=== PATIENT | male | born 1980 | race Caucasian/White ===

== ENCOUNTER 2021-03-09 09:08 | Inpatient (IN) | payer OTHER, SELFPAY ==
[2021-03-09] MEDS ORDERED: Morphine 4 MG/ML VIAL ONE ×2 (09:49→13:46)
[2021-03-09] MEDS ORDERED: Ondansetron PF 4 MG/2 ML Vial ONE ×3 (09:49→15:21)
[2021-03-09 10:13] LABS: Hemoglobin 14.8 g/dL (13.5-17.5); Mean Corpuscular HGB CONC 33.3 g/dL (32.0-36.0); Mean Corpuscular Hemoglobin 29.8 pg (27.0-33.0); Mean Corpuscular Volume 89.5 fl (81.2-95.1); Mean Platelet Volume 9.9 fl (7.4-10.4); Platelet Count 479 10x3/uL (150-450); Red Blood Cell (RBC) Count 4.96 10x6/uL (4.32-5.72); White Blood Cell (WBC) Count 20.7 10x3/uL (3.5-10.5)
[2021-03-09 10:24] LABS: ALT (SGPT) 13 U/L (8-55); AST (SGOT) 13 U/L (5-34); Albumin 4.5 g/dL (3.5-5.0); Alkaline Phosphatase 99 U/L (40-110); Anion Gap 16 mmol/L (10-20); BUN (Urea Nitrogen) 13 mg/dL (8.9-20.6); Bilirubin, Total 0.6 mg/dL (0.2-1.2); Calc. Creatinine Clearance 0 mL/min (70-130); Calcium 9.9 mg/dL (7.8-10.44); Carbon Dioxide 27 mmol/L (22-29); Chloride 97 mmol/L (98-107); Globulin 3.4 g/dL (2.4-3.5); Glucose 156 mg/dL (70-105); Lipase 16 U/L (8-78); Potassium 3.6 mmol/L (3.5-5.1); Protein, Total 7.9 g/dL (6.0-8.3); Sodium 136 mmol/L (136-145)
[2021-03-09 10:54] LABS: MDiff Complete? YES
[2021-03-09] MEDS ORDERED: Ketorolac Tromethamine 30 MG/ML VIAL ONE ×2 (10:57→16:04)
[2021-03-09 10:58] LABS: Band 2 % (5-11); Eosinophils 3 % (0-10); Lymphocytes 13 % (21-51); Monocytes 3 % (0-10); Neutrophil 79 % (42-75)
[2021-03-09 10:59] LABS: Large Platelets SLIGHT; Platelet Morphology Comment Appears Increased
[2021-03-09 11:12] LABS: Acetaminophen Less than 6.0 mcg/mL (10.0-30.0); Alcohol Less than 10 mg/dL (Less than 10); Salicylate Less than 8.0 mg/dL (15.0-30.0)
[2021-03-09 12:57] LABS: Lactic Acid 1.3 mmol/L (0.5-2.2)
[2021-03-09] MEDS ORDERED: Pantoprazole 40 MG VIAL ONE ×3 (13:47→13:49)
[2021-03-09 14:35] LABS: SARS-CoV-2 NAA Rapid Test Not Detected (NotDetected)
[2021-03-09] MEDS ORDERED: Dextrose 50% Abboject 50 ML SYRINGE SLOW IVP PRN (14:38)
[2021-03-09] MEDS ORDERED: Morphine 2 MG/ML VIAL SLOW IVP PRN (14:38)
[2021-03-09] MEDS ORDERED: Promethazine HCl 25 MG/ML VIAL IM PRN (14:38)
[2021-03-09] MEDS ORDERED: hydrALAZINE 20 MG/ML VIAL SLOW IVP PRN (14:38)
[2021-03-09] MEDS ORDERED: Dextrose 5% in Water 1,000 ML IV PRN (14:38)
[2021-03-09] MEDS ORDERED: PROPOFOL 40 ML ONE (15:20)
[2021-03-09] MEDS ORDERED: Fentanyl 250 MCG/5 ML VIAL ONE (15:21)
[2021-03-09] MEDS ORDERED: Lidocaine 1% PF 5 ML VIAL ONE (15:21)
[2021-03-09] MEDS ORDERED: Rocuronium Bromide 10 MG/ML (10ML VIAL) ONE (15:21)
[2021-03-09] MEDS ORDERED: Dexamethasone 4 mg/ml Vial ONE ×2 (15:21→15:39)
[2021-03-09] MEDS ORDERED: Succinylcholine 200 MG/10 ml SYRINGE FS ONE (15:22)
[2021-03-09] MEDS ORDERED: HYDROmorphone 0.5 MG/0.5 ML SYRINGE ONE (15:37)
[2021-03-09] MEDS ORDERED: ceFOXitin 1 GM VIAL ONE (15:39)
[2021-03-09] MEDS ORDERED: Midazolam HCl 2 mg/2 ml Vial ONE (15:40)
[2021-03-09] MEDS ORDERED: PHENYLEPHRINE-NS 100 MCG/ML 10 ML SYRINGE ONE ×2 (15:50→16:45)
[2021-03-09] MEDS ORDERED: ePHEDrine Sulfate 50 MG/10 ML VIAL ONE (15:54)
[2021-03-09] MEDS ORDERED: Glycopyrrolate 0.2 MG/ML 5 ML SYRINGE ONE (16:19)
[2021-03-09 20:27] VITALS: BMI 24.3
[2021-03-09] MEDS: D5 1/2 NS w/20 mEq KCL 1,000 ML IV SCH (20:28)
[2021-03-09] MEDS: Morphine 4 MG/ML VIAL SLOW IVP PRN (20:29)
[2021-03-09] MEDS: Famotidine/PF 20 mg/2ml Vial SLOW IVP SCH (20:30)
[2021-03-09] MEDS: Ketorolac Tromethamine 30 MG/ML VIAL IVP SCH (21:52)
[2021-03-09] MEDS ORDERED: FLU VACC QS2021-22(6MOS UP)/PF 60 MCG/0.5 ML SYRINGE IM ONE (22:15)
[2021-03-10] MEDS: Morphine 4 MG/ML VIAL SLOW IVP PRN ×7 (02:47→23:16)
[2021-03-10] MEDS: D5 1/2 NS w/20 mEq KCL 1,000 ML IV SCH ×4 (02:48→22:26)
[2021-03-10] MEDS: Ketorolac Tromethamine 30 MG/ML VIAL IVP SCH ×4 (04:20→21:17)
[2021-03-10 05:07] LABS: ALT (SGPT) 11 U/L (8-55); AST (SGOT) 13 U/L (5-34); Albumin 3.4 g/dL (3.5-5.0); Alkaline Phosphatase 65 U/L (40-110); Anion Gap 14 mmol/L (10-20); BUN (Urea Nitrogen) 14 mg/dL (8.9-20.6); Bilirubin, Total 0.7 mg/dL (0.2-1.2); Calc. Creatinine Clearance 138 mL/min (70-130); Calcium 8.4 mg/dL (7.8-10.44); Carbon Dioxide 25 mmol/L (22-29); Chloride 102 mmol/L (98-107); Globulin 2.5 g/dL (2.4-3.5); Glucose 131 mg/dL (70-105); Potassium 4.6 mmol/L (3.5-5.1); Protein, Total 5.9 g/dL (6.0-8.3); Sodium 136 mmol/L (136-145)
[2021-03-10 05:40] LABS: Hemoglobin 12.3 g/dL (13.5-17.5); Mean Corpuscular HGB CONC 33.4 g/dL (32.0-36.0); Mean Corpuscular Hemoglobin 30.4 pg (27.0-33.0); Mean Corpuscular Volume 90.9 fl (81.2-95.1); Mean Platelet Volume 10.1 fl (7.4-10.4); Platelet Count 379 10x3/uL (150-450); RBC Distribution Width 14.6 % (11.5-14.5); Red Blood Cell (RBC) Count 4.05 10x6/uL (4.32-5.72); White Blood Cell (WBC) Count 7.4 10x3/uL (3.5-10.5)
[2021-03-10 07:15] LABS: Eosinophils 1 % (0-10); Lymphocytes 7 % (21-51); Monocytes 12 % (0-10)
[2021-03-10 07:16] LABS: Neutrophil 27 % (42-75)
[2021-03-10 07:17] LABS: Band 47 % (5-11); Reactive Lymphocytes 5 % (0-10)
[2021-03-10 07:19] LABS: Large Platelets SLIGHT; Platelet Clumps SLIGHT; Platelet Morphology Comment Appears Adequate; Toxic Granulation SLIGHT
[2021-03-10 07:20] LABS: MDiff Complete? YES; RBC Morphology Normal
[2021-03-10] MEDS: Enoxaparin Sodium 40 MG/0.4 ML SYRINGE SC SCH (08:42)
[2021-03-10] MEDS: Famotidine/PF 20 mg/2ml Vial SLOW IVP SCH ×2 (08:42→21:21)
[2021-03-10] MEDS: Polyethylene Glycol 3350 17 GM Packet PO SCH (09:00)
[2021-03-10] MEDS: Ondansetron PF 4 MG/2 ML Vial IVP PRN (21:21)
[2021-03-11] MEDS: HYDROcodone/Acetaminophen 10/325 mg Tablet PO PRN (00:07)
[2021-03-11] MEDS: Morphine 4 MG/ML VIAL SLOW IVP PRN ×7 (01:33→20:54)
[2021-03-11] MEDS: Ketorolac Tromethamine 30 MG/ML VIAL IVP SCH ×4 (03:38→23:12)
[2021-03-11] MEDS: Ondansetron PF 4 MG/2 ML Vial IVP PRN (06:02)
[2021-03-11] MEDS: Famotidine/PF 20 mg/2ml Vial SLOW IVP SCH ×2 (09:43→20:56)
[2021-03-11] MEDS: Enoxaparin Sodium 40 MG/0.4 ML SYRINGE SC SCH (09:43)
[2021-03-11] MEDS: Polyethylene Glycol 3350 17 GM Packet PO SCH (09:44)
[2021-03-11] MEDS: D5 1/2 NS w/20 mEq KCL 1,000 ML IV SCH (09:48)
[2021-03-12] MEDS: D5 1/2 NS w/20 mEq KCL 1,000 ML IV SCH ×2 (02:13→16:20)
[2021-03-12] MEDS: Morphine 4 MG/ML VIAL SLOW IVP PRN ×3 (02:46→15:26)
[2021-03-12] MEDS: Ketorolac Tromethamine 30 MG/ML VIAL IVP SCH ×4 (05:16→21:56)
[2021-03-12] MEDS: Famotidine/PF 20 mg/2ml Vial SLOW IVP SCH ×2 (09:22→21:56)
[2021-03-12] MEDS: Enoxaparin Sodium 40 MG/0.4 ML SYRINGE SC SCH (09:23)
[2021-03-12] MEDS: Polyethylene Glycol 3350 17 GM Packet PO SCH ×2 (09:24→21:56)
[2021-03-12] MEDS: HYDROcodone/Acetaminophen 10/325 mg Tablet PO PRN (16:20)
[2021-03-13] MEDS: Morphine 4 MG/ML VIAL SLOW IVP PRN ×3 (00:40→23:33)
[2021-03-13] MEDS: Ketorolac Tromethamine 30 MG/ML VIAL IVP SCH ×2 (04:35→10:07)
[2021-03-13] MEDS: D5 1/2 NS w/20 mEq KCL 1,000 ML IV SCH ×2 (04:38→09:09)
[2021-03-13] MEDS: Enoxaparin Sodium 40 MG/0.4 ML SYRINGE SC SCH (09:08)
[2021-03-13] MEDS: Famotidine/PF 20 mg/2ml Vial SLOW IVP SCH ×2 (09:08→21:32)
[2021-03-13] MEDS: Polyethylene Glycol 3350 17 GM Packet PO SCH ×2 (10:08→21:32)
[2021-03-13] MEDS: HYDROcodone/Acetaminophen 10/325 mg Tablet PO PRN ×2 (14:37→21:33)
[2021-03-14] MEDS: Morphine 4 MG/ML VIAL SLOW IVP PRN ×4 (02:38→20:38)
[2021-03-14] MEDS: D5 1/2 NS w/20 mEq KCL 1,000 ML IV SCH ×2 (06:10→18:29)
[2021-03-14] MEDS: Polyethylene Glycol 3350 17 GM Packet PO SCH ×2 (09:22→20:39)
[2021-03-14] MEDS: Enoxaparin Sodium 40 MG/0.4 ML SYRINGE SC SCH (09:22)
[2021-03-14] MEDS: Famotidine/PF 20 mg/2ml Vial SLOW IVP SCH ×2 (09:22→20:39)
[2021-03-14] MEDS: HYDROcodone/Acetaminophen 10/325 mg Tablet PO PRN (17:29)
[2021-03-15] MEDS: Morphine 4 MG/ML VIAL SLOW IVP PRN ×2 (01:35→06:41)
[2021-03-15] MEDS: D5 1/2 NS w/20 mEq KCL 1,000 ML IV SCH (09:05)
[2021-03-15] MEDS: Enoxaparin Sodium 40 MG/0.4 ML SYRINGE SC SCH (09:07)
[2021-03-15] MEDS: Famotidine/PF 20 mg/2ml Vial SLOW IVP SCH (09:08)
[2021-03-15] MEDS: Polyethylene Glycol 3350 17 GM Packet PO SCH (10:14)
[2021-03-15 13:25] VITALS: BP 101/60; TEMP 99.1
== END 2021-03-15 16:58 | disposition home or self-care (01) | DRG 336 ==
LOC: CSHERS 09:08 → CSHTELE 18:24
PROVIDERS: ADMIT Surgery; ATTEND Surgery
PROC: 0DNU0ZZ Release Omentum, Open Approach (ICD-10-PCS; principal; 2021-03-09)
PROC: 0DN80ZZ Release Small Intestine, Open Approach (ICD-10-PCS; 2021-03-09)
DX: K56.609 Unspecified intestinal obstruction, unspecified as to partial versus complete obstruction (principal); E87.2 Acidosis; K66.0 Peritoneal adhesions (postprocedural) (postinfection); I10 Essential (primary) hypertension; D72.829 Elevated white blood cell count, unspecified; Z20.822 Contact with and (suspected) exposure to COVID-19
CPT/HCPCS: 36415; 36416; 71045; 74177; 80053; 80307; 83605; 83690; 85025; 93005; 94760; C9113; J0694; J1100; J1170; J1650; J1885; J2250; J2270; J2405; J2704; J3010; J3480; S0028; U0002